=== PATIENT | female | born 1985 | race Two or more races ===

== ENCOUNTER 2019-09-29 09:10 | Emergency (ER) | payer OTHER ==
[~2019-09-29] VITALS: Ht 167.6 cm; Wt 86.2 kg
== END 2019-09-29 11:10 | disposition home or self-care (01) ==
LOC: ER 09:10
DX: M77.01 Medial epicondylitis, right elbow (principal)

== ENCOUNTER 2022-04-27 12:20 | Emergency (ER) | payer OTHER | END 2022-04-27 14:11 | disposition home or self-care (01) | LOC: ER 12:20 | DX: T50.905A Adverse effect of unspecified drugs, medicaments and biological substances, initial encounter (principal); Y92.9 Unspecified place or not applicable; Z88.8 Allergy status to other drugs, medicaments and biological substances ==

== ENCOUNTER 2023-02-12 00:32 | Emergency (ER) | payer OTHER ==
[~2023-02-12] VITALS: Ht 167.6 cm; Wt 81.6 kg
[~2023-02-12 00:32] MED LIST: AMLODIPINE 2.5 MG; CYMBALTA60 MG; NORVASC2.5 MG PO
[2023-02-12] MEDS ORDERED: PRENATE DHA SO1 EAC1 PO (05:26)
== END 2023-02-12 05:58 ==
LOC: ER 00:32
DX: O26.891 Other specified pregnancy related conditions, first trimester (principal); Z3A.01 Less than 8 weeks gestation of pregnancy; R10.2 Pelvic and perineal pain; Z88.6 Allergy status to analgesic agent

== ENCOUNTER 2023-03-16 11:17 | Emergency (ER) | payer OTHER ==
[~2023-03-16] VITALS: Ht 167.6 cm; Wt 83.9 kg
[~2023-03-16 11:17] MED LIST changes: +PRENATE DHA SO1 EAC1 PO
== END 2023-03-16 14:40 | disposition home or self-care (01) ==
LOC: ER 11:17
DX: M62.838 Other muscle spasm (principal); Z88.8 Allergy status to other drugs, medicaments and biological substances

== ENCOUNTER 2023-06-12 14:17 | Emergency (ER) | payer OTHER ==
[~2023-06-12] VITALS: Ht 167.6 cm; Wt 86.2 kg
[2023-06-12 17:02] LABS: HEMOGLOBIN 11.1 g/dL (12.0-15.00); MEAN CELL VOLUME 81.2 fL (80.00-100.00); MEAN CORPUSCULAR HEMOGLOBIN 27.4 pg (27.00-32.0); MEAN CORPUSCULAR HGB CONC 33.8 g/dl (32.0-36.0); PLATELET COUNT 481 K/uL (150-450); RED BLOOD COUNT 4.07 M/uL (4.00-6.00); RED CELL DISTRIBUTION WIDTH 14.5 % (11.5-14.5)
[2023-06-12 17:06] LABS: URINE APPEARANCE Clear; URINE BILIRRUBIN Negative (NEGATIVE); URINE BLOOD Negative; URINE COLOR Yellow; URINE GLUCOSE Negative (NEGATIVE); URINE LEUKOCYTE Negative; URINE NITRATE Negative; URINE PROTEIN Negative (NEGATIVE); URINE UROBILINOGEN 0.2 E.U./dl
[2023-06-12 17:09] LABS: URINE BACTERIA 84.3 uL (0.0-1933); URINE EPITHELIAL CELLS 7.5 uL (0.0-38.8); URINE WBC 4.6 uL (0.0-23.2)
[2023-06-12 17:16] LABS: INR 0.97; PARTIAL THROMBOPLASTIN TIME 27.1 SECONDS (22.0-34.0); PROTHROMBIN TIME 10.2 SECONDS (9.0-11.5)
[2023-06-12 17:22] LABS: ANION GAP 8 (10.0-20.0); BLOOD UREA NITROGEN 11 mg/dL (7-18); BUN CREA RATIO 17 (7.0-25.0); CALCIUM 8.8 mg/dL (8.5-10.1); CARBON DIOXIDE 27 mEq/L (21-32); CHLORIDE 107 mmol/L (98-107); CREATININE SERUM 0.66 mg/dL (0.55-1.02); GFR 100.77; GLUCOSE FASTING 99 mg/dL (65-100); OSMOLALITY SERUM 275 MOSM/KG (275-295); POTASSIUM 3.98 mEq/L (3.5-5.1); SODIUM 138 mmol/L (136-145)
[2023-06-12 17:34] LABS: HCG QUANTITATIVE < 1 mUI/mL (1-3)
[2023-06-12] MEDS ORDERED: NAPROXEN500 MG PO (19:37)
== END 2023-06-12 19:43 | disposition home or self-care (01) ==
LOC: ER 14:17
PROVIDERS: General Practice
DX: R10.2 Pelvic and perineal pain (principal); D25.9 Leiomyoma of uterus, unspecified; Z88.8 Allergy status to other drugs, medicaments and biological substances

== ENCOUNTER 2024-12-04 07:00 | Emergency (ER) | payer OTHER ==
[~2024-12-04] VITALS: Ht 167.6 cm; Wt 82.6 kg
[~2024-12-04 07:00] MED LIST changes: +NAPROXEN500 MG PO
[2024-12-04] MEDS ORDERED: CYMBALTA30 MG PO (07:39)
[2024-12-04] MEDS ORDERED: KETOROLAC TROMETHAMINE 60 MG VIAL IM ONE (09:45)
[2024-12-04] MEDS ORDERED: KETO10TA2 PO (10:28)
== END 2024-12-04 10:54 | disposition home or self-care (01) ==
LOC: ER 07:01
DX: M25.511 Pain in right shoulder (principal); M25.521 Pain in right elbow; Z88.5 Allergy status to narcotic agent

== ENCOUNTER 2025-04-17 13:14 | Emergency (ER) | payer OTHER ==
[~2025-04-17] VITALS: Ht 167.6 cm; Wt 81.6 kg
[~2025-04-17 13:14] MED LIST changes: +CYMBALTA30 MG PO; +KETO10TA2 PO
[2025-04-17 13:20] VITALS: BP 150/86
[2025-04-17] MEDS ORDERED: TRIAMCINOLONE ACETONIDE 40 MG/ML VIAL IM ONE (14:30)
[2025-04-17] MEDS ORDERED: KETOROLAC TROMETHAMINE 30 MG VIAL IM ONE (14:30)
[2025-04-17] MEDS ORDERED: DICLOFENAC SODI50 MG PO (14:37)
[2025-04-17 14:53] VITALS: O2SAT 100
== END 2025-04-17 14:54 ==
LOC: ER 13:14
DX: M75.31 Calcific tendinitis of right shoulder (principal); Z88.8 Allergy status to other drugs, medicaments and biological substances; M79.7 Fibromyalgia